=== PATIENT | male | born 1955 | race Two or more races ===

== ENCOUNTER 2025-03-23 09:33 | Inpatient (IN) | payer OTHER, MEDICAID ==
[~2025-03-23] VITALS: Ht 177.8 cm; Wt 131.8 kg
--- NOTE | 2025-03-23 11:29 | ED.PDOC ---
HPI (NEURO) HPI Comments This is a 69 year old male presenting to the ED with chief complaint of dizziness with numbness. Patient reports that when he was lifting his truck with a brittney this morning, he started to experience bilateral leg numbness, but when getting up he also began to have associated dizziness and loss of balance. Patient states that his numbness has since resolved, but not the dizziness. Patient states he has history of CVA on 08/15/24, but has not been able to follow up with a neurologist since then due to moving. Patient denies any weakness, chest pain, SOB, fall, or injury. Chief Complaint: Dizziness Time Seen by MD: 11:27 Reviewed Notes: Nurses Notes, Medications, Allergies Information Source: Patient Mode of Arrival: Ambulatory Severity: Moderate Timing: Hours Duration: Since onset Prehospital treatment: None Numbness Location: (L) Arm, (R) Leg Onset: With light exertion Circumstances: Spontaneous Symptoms: Vertigo, Numbness History of: CVA Past Medical History PAST MEDICAL HISTORY: CVA, Thyroid Surgical History: Denies all surgeries Family History Family History: Reviewed,noncontributory to illness Social History Smoker: Non-Smoker Alcohol: Denies ETOH Use Drugs: Denies Drug Use Lives In: Home Constitutional: denies: chills, diaphoresis, fatigue, fever, malaise, sweats, weakness, others EENTM: denies: blurred vision, double vision, ear bleeding, ear discharge, ear drainage, ear pain, ear ringing, eye pain, eye redness, hearing loss, mouth pain, mouth swelling, nasal discharge, nose bleeding, nose congestion, nose pain, photophobia, tearing, throat pain, throat swelling, voice changes, others Respiratory: denies: cough, hemoptysis, orthopnea, SOB at rest, shortness of breath, SOB with excertion, stridor, wheezing, others Cardiovascular: denies: chest pain, dizzy spells, diaphoresis, Dyspnea on exertion, edema, irregular heart beat, left arm pain, lightheadedness, palpitations, PND, syncope, others Gastrointestinal: denies: abdomen distended, abdominal pain, blood streaked bowels, constipated, diarrhea, dysphagia, difficulty swallowing, hematemesis, melena, nausea, poor appetite, poor fluid intake, rectal bleeding, rectal pain, vomiting, others Genitourinary: denies: burning, dysuria, flank pain, frequency, hematuria, incontinence, penile discharge, penile sore, pain, testicle pain, testicle swelling, urgency, others Neurological: reports: dizziness, numbness; denies: fainting, headache, left sided numbness, left sided weakness, paresthesia, pre-existing deficit, right sided numbness, right sided weakness, seizure, speech problems, tingling, tremors, weakness, others Musculoskeletal: denies: back pain, gout, joint pain, joint swelling, muscle pain, muscle stiffness, neck pain, others Integumetry: denies: bruises, change in color, change in hair/nails, dryness, laceration, lesions, lumps, rash, wounds, others Allergic/Immunocompromised: denies: Difficulty Healing, Frequent Infections, Hives, Itching, others Hematologic/Lymphatic: denies: anemia, blood clots, easy bleeding, easy bruising, swollen glands, others Endocrine: denies: excessive hunger, excessive sweating, excessive thirst, excessive urination, flushing, intolerance to cold, intolerance to heat, unexplained weight gain, unexplained weight loss, others Psychiatric: denies: anxiety, bipolar disorder, depression, hopeless, panic disorder, schizophrenia, sleepless, suicidal, others All Other Systems: Reviewed and Negative Physical Exam General Appearance: No Apparent Distress, Obese HEENT: Normal ENT Inspection, PERRL/EOMI, Pharynx Normal, TMs Normal Neck: Full Range of Motion, Non-Tender, Normal, Normal Inspection Respiratory: Chest Non-Tender, Lungs Clear, No Accessory Muscle Use, No Respiratory Distress, Normal Breath Sounds Cardiovascular: No Edema, No JVD, No Murmur, No Gallop, Normal Peripheral Pulses, Regular Rate/Rhythm Breast Exam: Deferred Gastrointestinal: No Organomegaly, Non Tender, No Pulsatile Mass, Normal Bowel Sounds, Soft Genitalia: Deferred Pelvic: Deferred Rectal: Deferred Extremities: Decreased range of motion, No calf tenderness, Normal capillary refill, Normal inspection, Normal range of motion, Non-tender, No pedal edema Musculoskeletal : Apperance: Normal Neurologic: Abnormal Gait, Alert, hand carver II-XII nml as Tested, Depressed Affect, Dizziness, Motor Weakness, Normal Affect, Normal Mood, Sensory Deficit Cerebellar Function: Ataxia Reflexes: NOT DONE Skin: Dry, Normal Color, Warm Peripheral Pulses: 1+ carotid (R), 1+ carotid (L) Lymphatic: No Adenopathy EKG EKG : Pulse Rate (adult): 72 [place]: Normal Block: IVCD Was a procedure done? Was a procedure done?: No X-Ray, Labs, Meds, VS Vital Signs Date Time Temp Pulse Resp B/P (MAP) Pulse Ox O2 Delivery O2 Flow Rate FiO2 03/23/25 11:44 72 03/23/25 09:59 72 03/23/25 09:35 98.2 77 18 106/82 97 98.2 Lab Test 03/23/25 11:25 Range/Units White Blood Count 4.9 4.4-10.8 10^3/uL Red Blood Count 4.47 L 4.5-5.90 10^6/uL Hemoglobin 14.2 13.5-17.5 g/dL Hematocrit 42.2 41.0-53.0 % Mean Corpuscular Volume 94.5 80.0-100.0 fL Mean Corpuscular Hemoglobin 31.8 28.0-32.0 pg Mean Corpuscular Hemoglobin Concent 33.7 32.0-36.0 g/dL Red Cell Distribution Width 15.4 H 11.8-14.3 % Platelet Count 215 140-450 10^3/uL Mean Platelet Volume 7.5 6.9-10.8 fL Neutrophils (%) (Auto) 66.4 37.0-80.0 % Lymphocytes (%) (Auto) 24.4 10.0-50.0 % Monocytes (%) (Auto) 6.0 0.0-12.0 % Eosinophils (%) (Auto) 2.8 0.0-7.0 % Basophils (%) (Auto) 0.4 0.0-2.0 % Neutrophils # (Auto) 3.3 1.6-8.6 10 ^3/uL Lymphocytes # (Auto) 1.2 0.4-5.4 10 ^3/uL Monocytes # (Auto) 0.3 0-1.3 10 ^3/uL Eosinophils # (Auto) 0.1 0-0.8 10 ^3/uL Basophils # (Auto) 0 0-0.2 10 ^3/uL Nucleated Red Blood Cells 0.0 % Sodium Level 141 136-145 mmol/L Potassium Level 3.8 3.5-5.1 mmol/L Chloride Level 104 98-107 mmol/L Carbon Dioxide Level 29 20-31 mmol/L Anion Gap 8 5-15 Blood Urea Nitrogen 12 9-23 mg/dL Creatinine 1.08 0.700-1.30 mg/dL Glomerular Filtration Rate Calc 73 >90 mL/min BUN/Creatinine Ratio 11.1 10.0-20.0 Serum Glucose 112 H 74-106 mg/dL Calcium Level 9.5 8.7-10.4 mg/dL Magnesium Level 2.1 1.6-2.6 mg/dL Total Bilirubin 0.8 0.2-1.0 mg/dL Aspartate Amino Transferase (AST) 90 H 13-40 U/L Alanine Aminotransferase (ALT) 52 H 7-40 U/L Alkaline Phosphatase 97 46-116 U/L Troponin I High Sensitivity 4 </=54 ng/L Total Protein 8.4 H 5.7-8.2 g/dL Albumin 4.5 3.2-4.8 g/dL Current Medications Medications (Trade) Dose Ordered Sig/Diaz Route Start Time Stop Time Status Last Admin Sodium Chloride 1,000 ml @ 150 mls/hr Q6H40M ONCE IV 03/23/25 11:15 03/23/25 17:54 03/23/25 11:42 [place] [id number] Ph: [phone] DIAGNOSTIC IMAGING Diagnostic Imaging Report : [id number] Signed PATIENT: ERIN SMITH ACCT: [id number] UNIT: [id number] : 1955 LOC: ER ROOM / BED: / AGE / SEX: 69 / M ADM STATUS: REG ER SERVICE 1106 ORDERING PHYSICIAN: JIMMY BORDEN MD PROCEDURE(s): CTH - STROKE CTH REASON: Numbness to both legs history of CVA in July ORDER NUMBER(s): [id number], ACCESSION NUMBER(s): [id number] EXAM: CT STROKE CTH INDICATION: Numbness to both legs history of CVA in July TECHNIQUE: CT of the head without intravenous contrast. Radiation Dose : 1. Head: CT Dose: CTDI volume is 53.49 mGy. Dose-length product is 966.21 mGy*cm The dose indicators for CT are the volume Computed Tomography (CT) Dose Index (CTDIvol) and the Dose Length Product (DLP), and are measured in units of mGy and mGy-cm, respectively. These indicators are not patient dose, but values generated from the CT scanner acquisition factors. The report includes radiation exposure data for exposures received during this examination. COMPARISON: None FINDINGS: There is no evidence of acute intracranial hemorrhage, extra-axial collection, mass effect, midline shift, herniation or hydrocephalus. The ventricles, sulci and cisterns are age appropriate. The zamora-white differentiation is intact. Patchy periventricular and subcortical white matter hypoattenuation is nonspecific but may be related to small vessel ischemic disease. The visualized paranasal sinuses and mastoid air cells are clear. The surrounding soft tissues and osseous structures are unremarkable. IMPRESSION: No acute intracranial abnormality. Radiation optimization: All CT scans at this facility use at least one of these dose optimization techniques: automated exposure control mA and/or kV adjustment per patient size (includes targeted exams where dose is matched to clinical indication) or iterative reconstruction. ATED BY: CARLOS EDUARDO JOHN MD DICTATED DATE/TIME: 03/23/25 1152 SIGNED BY: CARLOS EDUARDO JOHN MD SIGNED DATE/TIME: 03/23/25 115 CC: [place] [address] Ph: [phone] DIAGNOSTIC IMAGING Diagnostic Imaging Report : [id number] Signed PATIENT: ERIN SMITH ACCT: [id number] UNIT: [id number] : 1955 LOC: ER ROOM / BED: / AGE / SEX: 69 / M ADM STATUS: REG ER SERVICE 1106 ORDERING PHYSICIAN: JIMMY BORDEN MD PROCEDURE(s): CXR2 - CHEST TWO VIEWS ROUTINE REASON: Possible CVA ORDER NUMBER(s): [id number], ACCESSION NUMBER(s): [id number] CHEST RADIOGRAPH Indication: Possible CVA Technique: XY CHEST TWO VIEWS ROUTINE Comparison: None FINDINGS: The cardiac silhouette is unremarkable. The lungs demonstrate no pulmonary airspace consolidation. The pulmonary vasculature is unremarkable. There is no pleural effusion. There is no pneumothorax. Moderate thoracic degenerative disc disease. IMPRESSION: No pulmonary airspace consolidation. ATED BY: JANES GOMEZ MD DICTATED DATE/TIME: 03/23/25 114 SIGNED BY: JANES GOMEZ MD SIGNED DATE/TIME: 03/23/251146 CC: X-Ray, Labs, Meds, VS Comment Course in the emergency department patient came in because of dizziness and numbness and weakness to lower extremity patient had a CVA last July Blood pressure 106/82 Chest x-ray normal EKG normal sinus rhythm at 72 Troponin at four CBC normal CMP normal except to likely elevation liver enzymes Magnesium 2.1 Patient will be admitted for further care Time of 1ST Reevaluation: 12:26 Reevaluation 1ST: Unchanged Patient Education/Counseling: Diagnosis, Treatment Family Education/Counseling: No Family Present Departure 1 Departure Time of Disposition: 14:53 Impression: Primary Impression: Leg weakness, bilateral Additional Impression: Gait disturbance, post-stroke Disposition: ADMITTED INPATIENT Admit to: [facility] Condition: Fair Critical Care Note Critical Care Time?: No Stability Stability form required: Yes Unstable for transfer: Telemetry monitoring (Telemetry monitoring required), Requires medication (Requires Med for stabilization) Heart Score Heart Score: Heart Score Response (Comments) Value History N/A 0 EKG Normal 0 Age >65 2 Risk Factors 1 or 2 risk factors 1 Troponin Normal limit 0 Total 3 I personally scribed for JIMMY BORDEN MD ([email or web address]) on 03/23/25 at 11:29. Elec tronically submitted by Sg Smith ([email or web address]). I personally scribed for JIMMY BORDEN MD ([email or web address]) on 03/23/25 at 12:00. Elec tronically submitted by Sg Smith ([email or web address]). JIMMY BORDEN MD Mar 23, 2025 11:29
[2025-03-23 11:42] LABS: Hematocrit 42.2 % (41.0-53.0); Hemoglobin 14.2 g/dL (13.5-17.5); Mean Corpuscular Hemoglobin 31.8 pg (28.0-32.0); Mean Corpuscular Volume 94.5 fL (80.0-100.0); Nucleated Red Blood Cells % 0.0 %
[2025-03-23] MEDS: SODIUM CHLORIDE 0.9% 1,000 ML IV ONE ×2 (11:42→19:31)
--- NOTE | 2025-03-23 11:46 | DVH ---
CHEST RADIOGRAPH Indication: Possible CVA Technique: XY CHEST TWO VIEWS ROUTINE Comparison: None FINDINGS: The cardiac silhouette is unremarkable. The lungs demonstrate no pulmonary airspace consolidation. Th e pulmonary vasculature is unremarkable. There is no pleural effusion. There is no pneumothorax. Mod erate thoracic degenerative disc disease. IMPRESSION: No pulmonary airspace consolidation.
--- NOTE | 2025-03-23 11:54 | DVH ---
EXAM: CT STROKE CTH INDICATION: Numbness to both legs history of CVA in July TECHNIQUE: CT of the head without intravenous contrast. Radiation Dose : 1. Head: CT Dose: CTDI volume is 53.49 mGy. Dose-length product is 966.21 mGy*cm The dose indicators for CT are the volume Computed Tomography (CT) Dose Index (CTDIvol) and the Dose Length Product (DLP), and are measured in units of mGy and mGy-cm, respectively. These indicators are not patient dose, but values generated from the CT scanner acquisition factors. The report includes radiation exposure data for exposures received during this examination. COMPARISON: None FINDINGS: There is no evidence of acute intracranial hemorrhage, extra-axial collection, mass effect, midline s hift, herniation or hydrocephalus. The ventricles, sulci and cisterns are age appropriate. The zamora-white differentiation is intact. Patchy periventricular and subcortical white matter hypoattenuation is nonspecific but may be related to small vessel ischemic disease. The visualized paranasal sinuses and mastoid air cells are clear. The surrounding soft tissues and osseous structures are unremarkable. IMPRESSION: No acute intracranial abnormality. Radiation optimization: All CT scans at this facility use at least one of these dose optimization génesis hniques: automated exposure control mA and/or kV adjustment per patient size (includes targeted exam s where dose is matched to clinical indication) or iterative reconstruction.
[2025-03-23 12:02] LABS: Albumin 4.5 g/dL (3.2-4.8); Alkaline Phosphatase 97 U/L (46-116); Anion Gap 8 (5-15); BUN/Creatinine Ratio 11.1 (10.0-20.0); Blood Urea Nitrogen 12 mg/dL (9-23); Calcium 9.5 mg/dL (8.7-10.4); Carbon Dioxide 29 mmol/L (20-31); Chloride 104 mmol/L (98-107); Magnesium 2.1 mg/dL (1.6-2.6); Potassium 3.8 mmol/L (3.5-5.1); Sodium 141 mmol/L (136-145)
[2025-03-23 12:03] LABS: Alanine Aminotransferase 52 U/L (7-40); Glucose 112 mg/dL (74-106); Total Protein 8.4 g/dL (5.7-8.2)
[2025-03-23 12:39] LABS: Bilirubin, Total 0.8 mg/dL (0.2-1.0)
--- NOTE | 2025-03-23 13:24 | ECG ---
[facility] Test Date: 2025-03-23 Test Time: 09:59:29 Pat Name: ERIN SMITH Department: [facility] ED Patient ID: [facility]-[id number] Room: 0295T Gender: M [employer]: GONZÁLEZ : 1955 Requested By: JIMMY BORDEN Order Number: [id number] Reading MD: Chilo Lloyd Measurements Intervals [place] Rate: 72 P: 0 UT: 149 QRS: 11 QRSD: 119 T: -18 QT: 460 QTc: 504 Interpretive Statements Sinus rhythm Nonspecific intraventricular conduction delay Borderline T abnormalities, diffuse leads Electronically Signed On 03-24-2025 17:02:41 PDT by Chilo Lloyd Please click the below link to view image of tracing.
[2025-03-23] MEDS ORDERED: ACETAMINOPHEN 325 MG TAB PO PRN (18:15)
[2025-03-23] MEDS ORDERED: NITROGLYCERIN 0.4 MG SL TAB SL PRN (18:15)
[2025-03-23] MEDS ORDERED: HYDROcodone-ACET 5/325MG TAB PO PRN (18:15)
[2025-03-23] MEDS ORDERED: MORPHINE SULFATE INJ 2 MG/ml SYRG IV PRN (18:15)
[2025-03-23 19:18] LABS: Cholesterol 190 mg/dL (< 200)
[2025-03-23 19:22] LABS: HDL Cholesterol 34 mg/dL (40-59); Triglycerides 169 mg/dL (< 150)
--- NOTE | 2025-03-23 19:33 | DVH ---
Carotid Duplex Date: 03/23/2025 06:38 PM Clinical History: dizziness Comparison: None Technique: Duplex Doppler evaluation of the extracranial carotid and vertebral arteries including col or Doppler and spectral/pulsed waveform analysis was performed. Findings: RIGHT SIDE: The peak systolic velocities are 55 cm/s in the distal CCA and 84 cm/s in the proximal ICA.The ICA/CC A ratio is less than 2. The external carotid artery is patent with peak systolic velocity of 68 cm/s proximally. There is appropriate antegrade flow in the right vertebral artery. LEFT SIDE: The peak systolic velocities are 59 cm/s in the distal CCA and 87 cm/s in the proximal ICA.. The ICA/ CCA ratio is less than 2. The external carotid artery is patent with peak systolic velocity of 75 cm/s proximally. There is appropriate antegrade flow in the left vertebral artery. IMPRESSION: 1. No hemodynamically significant stenosis noted in the right carotid system. 2. No hemodynamically significant stenosis noted in the left carotid system. 3. Reference: Radiology 2003; 229:340-346
[2025-03-23 21:36] VITALS: PULSE 60; RESP 16; O2SAT 95
[2025-03-23] MEDS: ATORVASTATIN 20 MG TAB PO SCH (21:48)
[2025-03-23 21:57] VITALS: BP 167/82; PULSE 51; RESP 18; TEMP 97.7; O2SAT 98
[2025-03-23 22:11] VITALS: BP 167/82; PULSE 51; RESP 18; TEMP 97.7; O2SAT 98
[2025-03-24] VITALS (8 sets, daily range): BP systolic 120–136; BP diastolic 72–86; PULSE 51–75; RESP 18–19; TEMP 97–98; O2SAT 96–98
--- NOTE | 2025-03-24 01:41 | DVHHP2 ---
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 Patient states he was working on his vehicle pertinent up on brittney stands and when he went to stand up he felt dizzy. Also endorsed numbness of bilateral lower extremities which has now resolved. Patient states that he mostly feels dizzy when he stands up on his toes and leans forward. States he has not followed up with Neurology or PCP. Is also endorsing financial difficulties as a result of his stroke. At this time denies fevers, chills, headaches, unilateral deficits, shortness of breath, chest pain, palpitations, syncope, nausea, vomiting. 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 Dyspnea, Edema, Lt Headedness, Other Gastrointestinal: No: Nausea, Vomiting, Abdominal Pain, Diarrhea, Constipation, Melena, Hematochezia, Other Genitourinary: No Dysuria, No Frequency, No Incontinence, No Hematuria, No Retention, No Other Musculoskeletal: No: other, neck pain, shoulder pain, arm pain, back pain, hand pain, leg pain, foot pain Skin: No: Rash, Lesions, Jaundice, Bruising, Other Neurological: Incoordination, Other (dizziness) Allergies: Coded Allergies: Penicillins (Verified Allergy, Unknown, 03/23/25) Medications Current Medications Medications Dose Ordered Sig/Diaz Route Start Time Stop Time Status Last Admin Dose Admin Nitroglycerin 0.4 mg Q5MINP PRN SL 03/23/25 18:15 Morphine Sulfate 2 mg Q30M PRN IV 03/23/25 18:15 Acetaminophen 650 mg Q4HP PRN PO 03/23/25 18:15 Acetaminophen/ Hydrocodone Bitart 1 tab Q4HPRN PRN PO 03/23/25 18:15 Aspirin 81 mg DAILY PO 03/24/25 10:00 Atorvastatin Calcium 10 mg HS PO 03/23/25 22:00 03/23/25 21:48 10 MG Enoxaparin Sodium 40 mg DAILY SC 03/24/25 10:00 Exam Vital Signs Vital Signs Date Time Temp Pulse Resp B/P (MAP) Pulse Ox O2 Delivery O2 Flow Rate FiO2 03/24/25 01:00 97.7 51 18 133/74 (93) 98 97.7 03/23/25 21:36 Room Air* 0 21 General Appearance: Alert, Oriented X3, Cooperative, No acute distress HEENT: Atraumatic, PERRLA, EOMI Respiratory: Clear to auscultation, Normal air movement Cardiovascular: Regular rate, Normal S1, Normal S2 Abdominal: Normal bowel sounds, Soft, No tenderness Extremities: No clubbing, No cyanosis, No edema Skin: No breakdown Neuro: Normal gait, Normal speech, Strength at 5/5 X4 ext Psych/Mental Status: Mental status NL, Mood NL Labs/Xrays Labs Test 03/23/25 18:41 03/23/25 11:25 Range/Units D-Dimer, Quantitative 1.01 H 0.0-0.49 mg/L FEU Troponin I High Sensitivity 3 L </=54 ng/L Triglycerides Level 169 H < 150 mg/dL Cholesterol Level 190 < 200 mg/dL LDL Cholesterol 148 H < 100 mg/dL HDL Cholesterol 34 L 40-59 mg/dL White Blood Count 4.9 4.4-10.8 10^3/uL Red Blood Count 4.47 L 4.5-5.90 10^6/uL Hemoglobin 14.2 13.5-17.5 g/dL Hematocrit 42.2 41.0-53.0 % Mean Corpuscular Volume 94.5 80.0-100.0 fL Mean Corpuscular Hemoglobin 31.8 28.0-32.0 pg Mean Corpuscular Hemoglobin Concent 33.7 32.0-36.0 g/dL Red Cell Distribution Width 15.4 H 11.8-14.3 % Platelet Count 215 140-450 10^3/uL Mean Platelet Volume 7.5 6.9-10.8 fL Neutrophils (%) (Auto) 66.4 37.0-80.0 % Lymphocytes (%) (Auto) 24.4 10.0-50.0 % Monocytes (%) (Auto) 6.0 0.0-12.0 % Eosinophils (%) (Auto) 2.8 0.0-7.0 % Basophils (%) (Auto) 0.4 0.0-2.0 % Neutrophils # (Auto) 3.3 1.6-8.6 10 ^3/uL Lymphocytes # (Auto) 1.2 0.4-5.4 10 ^3/uL Monocytes # (Auto) 0.3 0-1.3 10 ^3/uL Eosinophils # (Auto) 0.1 0-0.8 10 ^3/uL Basophils # (Auto) 0 0-0.2 10 ^3/uL Nucleated Red Blood Cells 0.0 % Sodium Level 141 136-145 mmol/L Potassium Level 3.8 3.5-5.1 mmol/L Chloride Level 104 98-107 mmol/L Carbon Dioxide Level 29 20-31 mmol/L Anion Gap 8 5-15 Blood Urea Nitrogen 12 9-23 mg/dL Creatinine 1.08 0.700-1.30 mg/dL Glomerular Filtration Rate Calc 73 >90 mL/min BUN/Creatinine Ratio 11.1 10.0-20.0 Serum Glucose 112 H 74-106 mg/dL Hemoglobin A1c 6.1 H <5.7 % A1C Calcium Level 9.5 8.7-10.4 mg/dL Magnesium Level 2.1 1.6-2.6 mg/dL Total Bilirubin 0.8 0.2-1.0 mg/dL Aspartate Amino Transferase (AST) 90 H 13-40 U/L Alanine Aminotransferase (ALT) 52 H 7-40 U/L Alkaline Phosphatase 97 46-116 U/L Total Protein 8.4 H 5.7-8.2 g/dL Albumin 4.5 3.2-4.8 g/dL SEPSIS Sepsis Screen Date sepsis recognized/suspect: Mar 23, 2025 Time Sepsis recognized/suspect: 2135 Recent Procedure: No On Antibiotic Therapy: No Respiratory Rate >20: No Heart Rate >90: No Temp<36 C (96.8 F) or >38.3 C: No SBP <90 or MAP <65 mmHG: No New Acute Mental Status Change: No Is the patient on CPAP, BIPAP,: No Physician Orders Admit (03/23/25 18:10) * Cardiology Consult (03/23/25 18:10) Cardiac Diet-2gna,Lofat,Lochol (03/23/25 Dinner) Brain Head Wo Contrast (03/23/25 18:10) Nitroglycerin Sublingual (Ntrostat Subli (03/23/25 18:15) Morphine Sulfate Injection (03/23/25 18:15) Stat Ekg For Chest Pain (03/23/25 18:10) Notify Md Of Changes From Base (03/23/25 18:10) Light Coil Winder For 24 Hours (03/23/25 18:10) Emergency Dysrhythmia Protocol (03/23/25 18:10) Rhythm Strips Once Every Shift (03/23/25 18:10) Oxygen By Nasal Cannula (03/23/25 18:10) Orthostatic Vital Signs (03/23/25 18:12) Acetaminophen Tablet (Tylenol Tablet) (03/23/25 18:15) Hydrocodone-Acet 5/325mg Tab ([place] 5/32 (03/23/25 18:15) Aspirin Enteric Coated Tablet (Ecotrin E (03/24/25 10:00) Atorvastatin (Lipitor) (03/23/25 22:00) Pt Request For Service (03/23/25 18:12) Sodium Chloride 0.9% (03/23/25 18:15) Urinalysis (03/23/25 18:15) Drug Screen (03/23/25 18:15) Carotid Duplx W Color Dop (03/23/25 18:16) Enoxaparin Sodium (Lovenox) (03/24/25 10:00) * Biller Consult (03/23/25 23:21) Vital Signs Date Time Temp Pulse Resp B/P (MAP) Pulse Ox O2 Delivery O2 Flow Rate FiO2 03/24/25 01:00 97.7 51 18 133/74 (93) 98 97.7 03/23/25 21:57 97.7 51 18 167/82 (110) 98 97.7 03/23/25 21:36 60 16 163/75 (104) 95 03/23/25 21:36 60 16 95 Room Air* 0 21 03/23/25 19:20 64 18 159/80 (106) 97 Medications Medications Dose Ordered Sig/Diaz Route Start Time Stop Time Status Last Admin Dose Admin Atorvastatin Calcium 10 mg HS PO 03/23/25 22:00 03/23/25 21:48 10 MG Assessment/Plan Assessment/Plan Dizziness Hx CVA Plan Admit to telemetry Neurology console. MRI brain. Statin, ASA, orthostatic vital signs UA / UDS pending Physical therapy evaluation DVT ppx lovenox Plan discussed with: Patient Date of Service: Mar 24, 2025 Billing Provider: FAVIOLA ROLLINS MD Common Visit Codes: NOT BILLABLE FAVIOLA ROLLINS MD 03/24/25 1404: Review of Systems Allergies: Coded Allergies: Penicillins (Verified Allergy, Unknown, 03/23/25) Additional Comments Additional Comments Additional Comments Patient's chart is reviewed and discussed with the nurse practitioner. Patient is seen and evaluated by me earlier today. I agree with the nurse practitioner's evaluation, documentation, assessment and care plan as outlined. NGHIA SHEA NP Mar 24, 2025 01:41 FAVIOLA ROLLINS MD Mar 24, 2025 14:04
[2025-03-24] MEDS: ENOXAPARIN SOD 40 MG/0.4 ML SYRINGE SC SCH (09:37)
[2025-03-24] MEDS: ASPirin-EC 81 mg tab PO SCH (09:37)
[2025-03-24 10:11] LABS: Urine Budding Yeast OCCASIONAL /hpf (None Seen); Urine Protein, UAD TRACE (Negative)
--- NOTE | 2025-03-24 10:17 | DVH ---
CLINICAL INDICATION: dizziness COMPARISON: None TECHNIQUE: Multisequence multiplanar MRI images of the brain were obtained without contrast. FINDINGS: Small focus of hyperintense signal in the diffusion-weighted images near the junction of t he left cerebellar hemisphere and cerebellar vermis, adjacent to the medial aspect of the left middle cerebellar peduncle, measuring up to 5.5 mm, without associated hypointense signal demonstrated in t his location on the ADC map, possibly subacute lacunar infarct. There is no large territory acute in farct. No mass or midline shift. Scattered areas of T2/FLAIR hyperintense signal in the periventricul ar and subcortical white matter are nonspecific, but most likely sequelae of chronic small vessel isc hemic disease. Ventricles and sulci are within normal limits. Basal cisterns are patent. Cerebellum, brainstem, and midline structures are within normal limits. Paranasal sinuses are clear. Orbits are g rossly unremarkable. IMPRESSION: 1. Small focus of hyperintense signal on the diffusion-weighted images near the junction of the left cerebellar hemisphere and cerebellar vermis, without associated hypointense signal on the ADC map, po ssible subacute lacunar infarct. 2. Additional nonacute findings as described above.
[2025-03-24 10:19] LABS: Amphetamine Screen, Urine Neg (NEGATIVE); Barbiturate Scree,Urine Neg (NEGATIVE); Benzodiazephine Screen, Urine Neg (NEGATIVE); Cannabinoid Screen, Urine Neg (NEGATIVE); Cocaine Screen, Urine Neg (NEGATIVE); Opiate Scree,Urine Neg (NEGATIVE); Phencyclidine Screen, Urine Neg (NEGATIVE)
--- NOTE | 2025-03-24 11:12 | DVHINCON2 ---
SILVERIO JESSICA [facility] 03/24/25 1112: Date Seen: Mar 24, 2025 Referring Physician MD Ananda Reason for Consultation Dizziness History of Present Illness This is a 69-year-old male patient who presents to emergency room with chief complaint of dizziness and bilateral leg numbness. The patient reports that prior to emergency room arrival, he was working on his car outside of his home. He states that when he went to get up off the ground and felt as though both of his legs were completely numb and he had no sensation. He reports trying to get up for a few minutes before finally regaining sensation to his legs. He reports when he stood up he began to feel very lightheaded. He decided to come to the emergency room for further evaluation. He denies any syncopal episodes or loss of consciousness. Initial twelve lead electrocardiogram reveals normal sinus rhythm without any significant ST segment changes. Serial troponin levels have been negative. 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 Of note, the patient admits to noncompliance with his prescribed medications. Past Medical History Past medical history reviewed. No other significant than mentioned above. Past Surgical History Left knee replacement Bilateral breast reduction Family History: Patient reports no known family medical history. Family History Family history reviewed. Social History Denies the use of tobacco, alcohol or illicit drugs. Allergies: Coded Allergies: Penicillins (Verified Allergy, Unknown, 03/23/25) Home Meds Active Scripts Atorvastatin Calcium (ATORVASTATIN CALCIUM) 20 Mg Tab, 1 TAB PO DAILY, #30 TAB Prov:FAVIOLA ROLLINS MD 03/24/25 Levothyroxine Sodium (Levothyroxine Sodium) 75 Mcg Tab, 1 TAB PO DAILY, #90 TAB 1 Refill Prov:FAVIOLA ROLLINS MD 03/24/25 Clopidogrel Bisulfate (CLOPIDOGREL) 75 Mg Tab, 1 TAB PO DAILY, #21 TAB Prov:FAVIOLA ROLLINS MD 03/24/25 Aspirin (Aspirin Ec Low Dose) 81 Mg Tab, 81 MG PO DAILY@BREAKFAST, #90 TAB 1 Ref ill Prov:FAVIOLA ROLLINS MD 03/24/25 Home Meds Home medications reviewed. Current Medications Current Medications Medications (Trade) Dose Ordered Sig/Diaz Route PRN Reason Start Time Stop Time Status Last Admin Nitroglycerin (Ntrostat Sublingual) 0.4 mg Q5MINP PRN SL FOR CHEST PAIN 03/23/25 18:15 Morphine Sulfate 2 mg Q30M PRN IV FOR CHEST PAIN 03/23/25 18:15 Acetaminophen (Tylenol Tablet) 650 mg Q4HP PRN PO PAIN SCALE 1-3 OR TEMP>100.4 03/23/25 18:15 Acetaminophen/ Hydrocodone Bitart (Bath 5/325MG Tab) 1 tab Q4HPRN PRN PO SEVERE PAIN (7-10 PAIN SCALE) 03/23/25 18:15 Aspirin (Ecotrin Enteric Coated Tablet) 81 mg DAILY PO 03/24/25 10:00 03/24/25 09:37 Atorvastatin Calcium (Lipitor) 10 mg HS PO 03/23/25 22:00 03/23/25 21:48 Enoxaparin Sodium (Lovenox) 40 mg DAILY SC 03/24/25 10:00 03/24/25 09:37 Review of Systems Constitutional: No symptom reported Ears, Nose, & Throat: No symptom reported Eyes: No symptom reported Neurological: Dizziness Pulmonary/Respiratory: No symptoms reported Cardiovascular: No symptom reported Gastrointestinal: No symptom reported Genitourinary: No symptom reported Musculoskeletal: No symptom reported Skin: No symptom reported Psychiatric: No symptom reported Endocrine: No symptom reported Hematologic/Lymphatic: No symptom reported Vital Signs Vital Signs Date Time Temp Pulse Resp B/P (MAP) Pulse Ox O2 Delivery O2 Flow Rate FiO2 03/24/25 08:42 97.0 52 18 126/76 (93) 96 97.0 03/24/25 08:24 Room Air* 0 21 Physical Exam General Appearance: Cooperative. Well-developed. Well-nourished. No acute distress. Pulmonary/Respiratory: Clear, bilateral breaths sounds. Cardiovascular/Chest: Regular rate and rhythm. Peripheral Pulses: 2+ Radial (R). 2+ Radial (L). Abdominal Exam: Normal bowel sounds. Ankle Exam: Negative ankle edema Lower extremities: Trace edema Neuro/Mental Status: A/OX4, coherent. Thoughts/Psych: Normal thought pattern. Appropriate mood and affect. Good judgment and insight. Appearance: No acute distress. Skin Exam: Normal inspection. Normal color. Warm and dry. Labs/Diagnostic Data Labs Test 03/24/25 09:46 03/24/25 09:45 03/23/25 18:41 03/23/25 11:25 Range/Units Urine Color Yellow Yellow Urine Clarity Clear Clear Urine pH 5.5 5.0-9.0 Urine Specific [place] 1.024 1.001-1.035 Urine Protein Trace H Negative Urine Ketones Negative Negative Urine Blood Negative Negative /uL Urine Nitrite Negative Negative Urine Bilirubin Negative Negative Urine Urobilinogen Normal Negative mg/dL Urine Leukocyte Esterase Negative Negative /uL Urine RBC 1 0 - 3 /hpf Urine Microscopic WBC 1 0-3 /HPF Urine Squamous Epithelial Cells Few <5 /hpf Urine Bacteria None seen None Seen /hpf Urine Mucus Few None Seen Urine Yeast (Budding) Occasional None Seen /hpf Urine Glucose Normal Normal mg/dL Urine Opiates Screen Neg NEGATIVE Urine Fentanyl Screen Neg NEGATIVE Urine Barbiturates Screen Neg NEGATIVE Urine Phencyclidine Screen Neg NEGATIVE Urine Amphetamines Screen Neg NEGATIVE Urine Benzodiazepines Screen Neg NEGATIVE Urine Cocaine Screen Neg NEGATIVE Urine Cannabinoids Screen Neg NEGATIVE D-Dimer, Quantitative 1.01 H 0.0-0.49 mg/L FEU Troponin I High Sensitivity 3 L </=54 ng/L Triglycerides Level 169 H < 150 mg/dL Cholesterol Level 190 < 200 mg/dL LDL Cholesterol 148 H < 100 mg/dL HDL Cholesterol 34 L 40-59 mg/dL White Blood Count 4.9 4.4-10.8 10^3/uL Red Blood Count 4.47 L 4.5-5.90 10^6/uL Hemoglobin 14.2 13.5-17.5 g/dL Hematocrit 42.2 41.0-53.0 % Mean Corpuscular Volume 94.5 80.0-100.0 fL Mean Corpuscular Hemoglobin 31.8 28.0-32.0 pg Mean Corpuscular Hemoglobin Concent 33.7 32.0-36.0 g/dL Red Cell Distribution Width 15.4 H 11.8-14.3 % Platelet Count 215 140-450 10^3/uL Mean Platelet Volume 7.5 6.9-10.8 fL Neutrophils (%) (Auto) 66.4 37.0-80.0 % Lymphocytes (%) (Auto) 24.4 10.0-50.0 % Monocytes (%) (Auto) 6.0 0.0-12.0 % Eosinophils (%) (Auto) 2.8 0.0-7.0 % Basophils (%) (Auto) 0.4 0.0-2.0 % Neutrophils # (Auto) 3.3 1.6-8.6 10 ^3/uL Lymphocytes # (Auto) 1.2 0.4-5.4 10 ^3/uL Monocytes # (Auto) 0.3 0-1.3 10 ^3/uL Eosinophils # (Auto) 0.1 0-0.8 10 ^3/uL Basophils # (Auto) 0 0-0.2 10 ^3/uL Nucleated Red Blood Cells 0.0 % Sodium Level 141 136-145 mmol/L Potassium Level 3.8 3.5-5.1 mmol/L Chloride Level 104 98-107 mmol/L Carbon Dioxide Level 29 20-31 mmol/L Anion Gap 8 5-15 Blood Urea Nitrogen 12 9-23 mg/dL Creatinine 1.08 0.700-1.30 mg/dL Glomerular Filtration Rate Calc 73 >90 mL/min BUN/Creatinine Ratio 11.1 10.0-20.0 Serum Glucose 112 H 74-106 mg/dL Hemoglobin A1c 6.1 H <5.7 % A1C Calcium Level 9.5 8.7-10.4 mg/dL Magnesium Level 2.1 1.6-2.6 mg/dL Total Bilirubin 0.8 0.2-1.0 mg/dL Aspartate Amino Transferase (AST) 90 H 13-40 U/L Alanine Aminotransferase (ALT) 52 H 7-40 U/L Alkaline Phosphatase 97 46-116 U/L Total Protein 8.4 H 5.7-8.2 g/dL Albumin 4.5 3.2-4.8 g/dL Assessment Dizziness, rule out cardiac etiology Rule out structural heart disease Rule out acute CVA versus TIA History of CVA July 2024 Hypertension Dyslipidemia Thyroid disease Prediabetes, newly diagnosed Klinefelter syndrome Obesity Plan/Recommendation We will continue with the following plan/recommendations (Dr. Salomon): * Transthoracic echocardiogram to evaluate cardiac function * Bilateral carotid ultrasound: No significant stenosis in right or left carotid system * Orthostatic vital signs * Blood pressure control and lipid-lowering agent * Close Cardiac surveillance * Consider Neurology consult Patient seen and examined at bedside with . We are pending a transthoracic echocardiogram to evaluate cardiac function. feed manager reviewed episodes of sinus bradycardia noted without any atrioventricular blocks or pauses. TSH noted to be severely elevated. Primary team to manage Thyroid. In the setting of an unremarkable transthoracic echocardiogram, there is no further inpatient cardiac workup indicated at this time. Consider Neurology consult. Thank you for allowing us to care for this patient. Please call with any questions or concerns. Critical care time spent: 44 minutes This medical document was created using an electronic medical record system with voice recognition software and computerized dictation system. Although this document has been carefully reviewed, there might still be some phonetic and typographical errors. Occasional wrong-word or ``sound-alike substitutions may have occurred due to the inherent limitations of voice recognition software. These areas are purely typographical due to imperfections of the software programs and do not reflect any compromise in the patient's medical care. Please read the chart carefully and recognize, using context, where these substitutions have occurred. Plan discussed with: Patient NYHA Physical activity limitations: NA Date of Service: Mar 24, 2025 Billing Provider: SILVERIO JESSICA Cardiology Common Codes: 69482-[id number] INP/OBS CARE (High) Cardiology Consultation Codes: 82925-[id number] CONSULT <45MIN KENNETH SALOMON MD 03/24/25 1457: Family History: Patient reports no known family medical history. Allergies: Coded Allergies: Penicillins (Verified Allergy, Unknown, 03/23/25) Home Meds Active Scripts Atorvastatin Calcium (ATORVASTATIN CALCIUM) 20 Mg Tab, 1 TAB PO DAILY, #30 TAB Prov:FAVIOLA ROLLINS MD 03/24/25 Levothyroxine Sodium (Levothyroxine Sodium) 75 Mcg Tab, 1 TAB PO DAILY, #90 TAB 1 Refill Prov:FAVIOLA ROLLINS MD 03/24/25 Clopidogrel Bisulfate (CLOPIDOGREL) 75 Mg Tab, 1 TAB PO DAILY, #21 TAB Prov:FAVIOLA ROLLINS MD 03/24/25 Aspirin (Aspirin Ec Low Dose) 81 Mg Tab, 81 MG PO DAILY@BREAKFAST, #90 TAB 1 Refill Prov:FAVIOLA ROLLINS MD 03/24/25 Plan/Recommendation agree with QUILL STRIPPER and CV team pt assessed and agree with plan examined by myself TSH needs eval cva cont bp treatment echo Plan discussed with: Patient SILVERIO JESSICA Mar 24, 2025 11:12 KENNETH SALOMON MD Mar 24, 2025 14:57
[2025-03-24 13:28] LABS: Free T3 1.29 pg/mL (2.3-4.2)
[2025-03-24 13:29] LABS: Free T4 (Free Thyroxine) 0.34 ng/dL (0.89-1.76)
[2025-03-24] MEDS ORDERED: ATOR20TA50 PO (14:09)
[2025-03-24] MEDS ORDERED: ASPI81TA10 PO (14:09)
[2025-03-24] MEDS ORDERED: LEVO75TA6 PO (14:09)
[2025-03-24] MEDS ORDERED: CLOP75TA70 PO (14:09)
--- NOTE | 2025-03-24 14:11 | DVHDS2 ---
Discharge Summary Date of Admission Mar 23, 2025 at 18:10 Date of Discharge: Mar 24, 2025 Labs/Diagnostic Data: Laboratory Results Test 03/24/25 09:46 03/24/25 09:45 03/23/25 18:41 03/23/25 11:25 Thyroid Stimulating Hormone (TSH) 88.21 uIU/mL (0.55-4.78) Free Thyroxine (T4) Calculated 0.34 ng/dL (0.89-1.76) Free Triiodothyronine (T3) pg/mL 1.29 pg/mL (2.3-4.2) Urine Color Yellow (Yellow) Urine Clarity Clear (Clear) Urine pH 5.5 (5.0-9.0) Urine Specific [place] 1.024 (1.001-1.035) Urine Protein Trace (Negative) Urine Ketones Negative (Negative) Urine Blood Negative /uL (Negative) Urine Nitrite Negative (Negative) Urine Bilirubin Negative (Negative) Urine Urobilinogen Normal mg/dL (Negative) Urine Leukocyte Esterase Negative /uL (Negative) Urine RBC 1 /hpf (0 - 3) Urine Microscopic WBC 1 /HPF (0-3) Urine Squamous Epithelial Cells Few /hpf (<5) Urine Bacteria None seen /hpf (None Seen) Urine Mucus Few (None Seen) Urine Yeast (Budding) Occasional /hpf (None Urine Glucose Normal mg/dL (Normal) Urine Opiates Screen Neg (NEGATIVE) Urine Fentanyl Screen Neg (NEGATIVE) Urine Barbiturates Screen Neg (NEGATIVE) Urine Phencyclidine Screen Neg (NEGATIVE) Urine Amphetamines Screen Neg (NEGATIVE) Urine Benzodiazepines Screen Neg (NEGATIVE) Urine Cocaine Screen Neg (NEGATIVE) Urine Cannabinoids Screen Neg (NEGATIVE) D-Dimer, Quantitative 1.01 mg/L FEU (0.0-0.49) Troponin I High Sensitivity 3 ng/L (</=54) Triglycerides Level 169 mg/dL (< 150) Cholesterol Level 190 mg/dL (< 200) LDL Cholesterol 148 mg/dL (< 100) HDL Cholesterol 34 mg/dL (40-59) White Blood Count 4.9 10^3/uL (4.4-10.8) Red Blood Count 4.47 10^6/uL (4.5-5.90) Hemoglobin 14.2 g/dL (13.5-17.5) Hematocrit 42.2 % (41.0-53.0) Mean Corpuscular Volume 94.5 fL (80.0-100.0) Mean Corpuscular Hemoglobin 31.8 pg (28.0-32.0) Mean Corpuscular Hemoglobin Concent 33.7 g/dL (32.0-36.0) Red Cell Distribution Width 15.4 % (11.8-14.3) Platelet Count 215 10^3/uL (140-450) Mean Platelet Volume 7.5 fL (6.9-10.8) Neutrophils (%) (Auto) 66.4 % (37.0-80.0) Lymphocytes (%) (Auto) 24.4 % (10.0-50.0) Monocytes (%) (Auto) 6.0 % (0.0-12.0) Eosinophils (%) (Auto) 2.8 % (0.0-7.0) Basophils (%) (Auto) 0.4 % (0.0-2.0) Neutrophils # (Auto) 3.3 10 ^3/uL (1.6-8.6) Lymphocytes # (Auto) 1.2 10 ^3/uL (0.4-5.4) Monocytes # (Auto) 0.3 10 ^3/uL (0-1.3) Eosinophils # (Auto) 0.1 10 ^3/uL (0-0.8) Basophils # (Auto) 0 10 ^3/uL (0-0.2) Nucleated Red Blood Cells 0.0 % Sodium Level 141 mmol/L (136-145) Potassium Level 3.8 mmol/L (3.5-5.1) Chloride Level 104 mmol/L (98-107) Carbon Dioxide Level 29 mmol/L (20-31) Anion Gap 8 (5-15) Blood Urea Nitrogen 12 mg/dL (9-23) Creatinine 1.08 mg/dL (0.700-1.30) Glomerular Filtration Rate Calc 73 mL/min (>90) BUN/Creatinine Ratio 11.1 (10.0-20.0) Serum Glucose 112 mg/dL (74-106) Hemoglobin A1c 6.1 % A1C (<5.7) Calcium Level 9.5 mg/dL (8.7-10.4) Magnesium Level 2.1 mg/dL (1.6-2.6) Total Bilirubin 0.8 mg/dL (0.2-1.0) Aspartate Amino Transferase (AST) 90 U/L (13-40) Alanine Aminotransferase (ALT) 52 U/L (7-40) Alkaline Phosphatase 97 U/L (46-116) Total Protein 8.4 g/dL (5.7-8.2) Albumin 4.5 g/dL (3.2-4.8) Other Laboratory Tests 03/23/25 11:25 Brief Hx & Hospital Course: 69-year-old male with past medical history of CVA July 2024 presents with complaints of dizziness x1 day. Patient states he was working on his vehicle pertinent up on [place] [place] and when he went to stand up he felt dizzy. Also endorsed numbness of bilateral lower extremities which has now resolved. Patient states that he mostly feels dizzy when he stands up on his toes and leans forward. States he has not followed up with Neurology or PCP. Is also endorsing financial difficulties as a result of his stroke. At this time denies fevers, chills, headaches, unilateral deficits, shortness of breath, chest pain, palpitations, syncope, nausea, vomiting. He is admitted and had MRI of the brain showed a subacute lacunar infarction. His symptoms of dizziness have resolved. His blood pressure has normalized. He is getting out of bed ambulating without issues. Therefore it is felt he could be safely discharged home. Patient cholesterol LDL level is high. Patient also has elevated TSH as to of hypothyroidism. After talking to the patient he is apparently has not been taking any of his medications for last three or more months due to unable to get refills. Patient apparently moved from [place] to this area this year. He has only seen his primary care physician one time. Patient counseled and educated extensively at bedside by myself regarding his medical diagnosis, problems and diet exercise weight loss and aggressive risk factor modification to prevent further strokes and heart attacks. He is advised to take the medications as prescribed and have a close follow up with his primary care physician to repeat his liver function tests thyroid tests and cholesterol after six weeks. He is also advised to check his blood pressure 3 times a week to keep it below 120/80. Patient is also advised to consider weight loss modalities to improve his obesity and obesity related health issues. Patient verbalized understanding of this and verbalized understanding of his hospital diagnosis, treatment he received, discharge medications including side effects, discharge instructions and agree with the discharge follow-up plan of care as outlined. Condition at Discharge: Stable Final Diagnosis/Problems List TIA, hypercholesterolemia, hypothyroidism, morbid obesity Discharge Disposition: Home Discharge Instruct/Medications Diet: Consistent carbohydrate, Cardiac 2g Na,low cholest Activity: No Restrictions, As Tolerated Follow Up/Referral: Primary care physician in two weeks for management of your thyroid problem, high cholesterol, obesity. Referral to neurologist after 3-4 weeks follow up TIA and further management. Medications: As prescribed for discharge med reconciliation list. Scheduled Aspirin (Aspirin Ec Low Dose), 81 MG PO DAILY@BREAKFAST Atorvastatin Calcium (Atorvastatin Calcium), 1 TAB PO DAILY Clopidogrel Bisulfate (Clopidogrel), 1 TAB PO DAILY Levothyroxine Sodium (Levothyroxine Sodium), 1 TAB PO DAILY Discharge Statement: "Patient was advised to return to the ER or call 911 if any headaches, dizziness, shortness of breath, chest pain, abdominal pain, bleeding, fevers, or worsening of medical condition. Patient was counseled about treatment plan, medications, possible side effects, patientverbalized understanding. All questions were answered to the best of my ability. This discharge took greater then 30 minutes in planning, reviewing documentation, counseling the patient, and discussing with other team members." ASSESSMENT ASSESSMENT Assessment TIA, hypercholesterolemia, hypothyroidism, morbid obesity FAVIOLA ROLLINS MD Mar 24, 2025 14:11
[2025-03-24] MEDS: LEVOTHYROXINE SODIUM 50 MCG TAB PO ONE (16:29)
[2025-03-24] MEDS: CLOPIDOGREL BISULFATE 75 MG TAB PO ONE (16:29)
[2025-03-24] MEDS ORDERED: ATORVASTATIN 20 MG TAB PO SCH (22:00)
[2025-03-25] MEDS ORDERED: LEVOTHYROXINE SODIUM 100 MCG TAB PO SCH (06:00)
[2025-03-25] MEDS ORDERED: CLOPIDOGREL BISULFATE 75 MG TAB PO SCH (10:00)
== END 2025-03-24 18:55 | disposition home or self-care (01) | DRG 69 ==
LOC: ER 09:33 → OVERFLOW 18:10 → TELE-WESTW 21:57
PROVIDERS: ADMIT Hospitalist; ATTEND Hospitalist
DX: G45.9 Transient cerebral ischemic attack, unspecified (principal); Z68.41 Body mass index [BMI] 40.0-44.9, adult; E66.01 Morbid (severe) obesity due to excess calories; E03.9 Hypothyroidism, unspecified; I10 Essential (primary) hypertension; R73.03 Prediabetes; E78.00 Pure hypercholesterolemia, unspecified; Q98.4 Klinefelter syndrome, unspecified; Z96.652 Presence of left artificial knee joint; Z91.148 Patient's other noncompliance with medication regimen for other reason; Z88.0 Allergy status to penicillin; Z59.86 Financial insecurity
CPT/HCPCS: 36415; 70450; 70551; 71046; 80053; 80061; 80307; 81001; 83036; 83735; 84439; 84443; 84481; 84484; 85025; 85379; 93005; 93886; 97163; G0378